=== PATIENT | female | born 1985 | race Caucasian/White ===

== ENCOUNTER 2016-03-20 13:41 | Emergency (ER) | payer OTHER ==
[2016-03-20 16:50] VITALS: BP 114/64
[2016-03-20] MEDS ORDERED: HYDROcodone/ACETAMIN 5-325 MG* 1 TAB PO ONE (17:00)
--- NOTE | 2016-03-20 17:02 | UC ---
Hand/Wrist HPI - HPI Summary HPI Summary: right hand pain after punching a wall today at 2pm because she was angry with her mother in law to be. No prior injury to the same hand. No other injury today. Did not take meds prior to coming for pain. Has seizure disorder, does not drive. Note: nursing note states 3rd and 4th fingers, I note index and middle fingers with swelling at MCP. - History Of Current Complaint Chief Complaint: UCUpperExtremity Stated Complaint: RIGHT HAND INJURY Time Seen by Provider: 03/20/16 16:46 Hx Obtained From: Patient Hx Last Menstrual Period: 03/09/16 ?: No Mechanism Of Injury: punched a wall Onset/Duration: Sudden Onset, Lasting Hours, Still Present Severity Initially: Moderate Severity Currently: Severe Pain Intensity: 7 Pain Scale Used: 0-10 Numeric Character Of Pain: Sharp, Throbbing Aggravating Factor(s): Movement Alleviating: Nothing Associated Signs And Symptoms: Positive: Redness, Bruising - Allergies/Home Medications Allergies/Adverse Reactions: Allergies Allergy/AdvReac Type Severity Reaction Status Date / Time Ibuprofen AdvReac ulcer Verified 03/20/16 16:50 PMH/Surg Hx/FS Hx/Imm Hx Previously Healthy: No Endocrine History Of: Denies: Diabetes Cardiovascular History Of: Denies: Hypertension, Pacemaker/ICD Respiratory History Of: Reports: Asthma - USES INHALER GI/ History Of: Reports: Ulcer Denies: Renal Disease Neurological History Of: Reports: Seizures - LAST ONE OCT 2014(STATES STRESS INDUCED), Migraine - HX OF TWICE A WEEK, NONE SINCE CHANGE OF MEDICATIONS Psychological History Of: Reports: Anxiety - CONTROL WITH MEDS/ SEVERE PANIC ATTACKS, Depression - CONTROL WITH MEDS - Surgical History Surgical History: Yes Surgery Procedure, Year, and Place: TONSILECTOMY A CHILD,. 2006 ULCER REPAIR WITH CAUTERIZATION, [place], [place]. 2007 RIGHT HIP CYST REMOVAL, [place], [place]. 2014 RIGHT FOOT BUNION REMOVED, [facility] - Family History Known Family History: Positive: Hypertension, Other - father from lung cancer - Social History Lives: With Family Alcohol Use: None Substance Use Type: Marijuana Substance Use Comment - Amount & Last Used: states haven't used in 1 month Smoking Status (MU): Heavy Every Day Tobacco Smoker Type: Cigarettes Amount Used/How Often: 1 pack daily Length of Time of Smoking/Using Tobacco: started at age 16 Have You Smoked in the Last Year: Yes When Did the Patient Quit Smoking/Using Tobacco: TAKING CHANTIX Household Exposure Type: Cigarettes - Immunization History Most Recent Influenza Vaccination: 2014 Review of Systems Constitutional: Negative Skin: Negative Eyes: Negative ENT: Negative Respiratory: Negative Cardiovascular: Negative Gastrointestinal: Negative Genitourinary: Negative Motor: Negative Neurovascular: Negative Musculoskeletal: Arthralgia Neurological: Negative Psychological: Negative All Other Systems Reviewed And Are Negative: Yes Physical Exam Triage Information Reviewed: Yes Appearance: Well-Appearing, Well-Nourished, Pain Distress Vital Signs: Initial Vital Signs Temp 98.9 F 03/20/16 16:42 Pulse 120 03/20/16 16:42 Resp 16 03/20/16 16:42 BP 114/64 03/20/16 16:42 Pulse Ox 100 03/20/16 16:42 TACHYCARDIA NOTED Vital Signs Reviewed: Yes Eyes: Positive: Conjunctiva Clear ENT: Positive: Normal ENT inspection Neck: Positive: Supple, Nontender Respiratory: Positive: Lungs clear, Normal breath sounds, No respiratory distress Cardiovascular: Positive: No Murmur, Pulses Normal, Brisk Capillary Refill, Tachycardia Musculoskeletal: Positive: Strength Intact, ROM Limited @ - RIGHT HAND DUE TO PAIN, SWELLING AND REDNESS AND BRUISING AT INDEX AND MIDDLE MCP JOINTS; IS ABLE TO FULLY FLEX AND EXTEND Neurological: Positive: Alert, Muscle Tone Normal Psychological Exam: Normal Skin: Positive: Other - BRUISING AND REDNESS RIGHT HAND, ABOVE Re-Evaluation - Re-Evaluation First Eval Re-Evaluation Time: 18:10 Change: Improved - pain is decreased after norco. Boyfriend is with pt. Pulse with my auscultation is 102. pt states her pulse is fast because she is in pain and is still upset Hand/Wrist Course/Dx - Course Course Of Treatment: RIGHT HAND NEG - Differential Dx/Diagnosis Differential Diagnosis/HQI/PQRI: Contusion, Fracture, Sprain, Strain Provider Diagnoses: CONTUSION RIGHT HAND. TACHYCARDIA Discharge - Discharge Plan Condition: Stable Disposition: HOME Prescriptions: HYDROcodone/ACETAMIN 5-325 MG* [Andrews 5-325 TAB*] 1 tab PO Q4H PRN #12 tab MDD 4 PRN Reason: Pain Patient Education Materials: Contusion in Adults (ED), RICE Therapy (ED) Referrals: Noe Mirza MD [Medical Doctor] - If Needed (IF PAIN PERSISTS )
--- NOTE | 2016-03-20 17:41 | RAD ---
HISTORY: Trauma to right hand COMPARISONS: None VIEWS: 2, Frontal and lateral views of the right hand FINDINGS: BONE DENSITY: Normal. BONES: There is no displaced fracture. JOINTS: There is no arthropathy. ALIGNMENT: There is no dislocation. SOFT TISSUES: Unremarkable. OTHER FINDINGS: None. IMPRESSION: NO ACUTE OSSEOUS INJURY. IF SYMPTOMS PERSIST, RECOMMEND REPEAT IMAGING.
== END 2016-03-20 18:19 | disposition home or self-care (01) ==
LOC: UCCORT 13:41
DX: S60.221A Contusion of right hand, initial encounter (principal); R00.0 Tachycardia, unspecified; J45.909 Unspecified asthma, uncomplicated; F32.9 Major depressive disorder, single episode, unspecified; F41.9 Anxiety disorder, unspecified; F12.90 Cannabis use, unspecified, uncomplicated; F17.210 Nicotine dependence, cigarettes, uncomplicated; W22.09XA Striking against other stationary object, initial encounter; Y92.9 Unspecified place or not applicable; Z88.6 Allergy status to analgesic agent
CPT/HCPCS: 99213; G0463

== ENCOUNTER 2016-03-26 15:55 | Emergency (ER) | payer OTHER ==
[2016-03-26 16:12] VITALS: BP 109/78
[2016-03-26] MEDS ORDERED: Ketorolac INJ* 60 MG/2 ML VIAL IM ONE (17:44)
[2016-03-26] MEDS ORDERED: Ondansetron ODT TAB* 4 MG PO ONE (17:44)
--- NOTE | 2016-03-26 17:44 | UC ---
Head Injury HPI - HPI Summary HPI Summary: Fall on ice on unshovelled walk in front of a client's house this morning. No loss of consciousness, fell onto the right hip and right side of her head. Worked through the day, but presents here with increasing headache and light sensitivity, unresponsive to caffeine. She has a history of migraine, is on topamax. Has used zofran in the past with effectiveness, and has also used toradol in the past. Ibuprofen does not cause an allergic response; rather it was related to previous development of ulcer. She has used toradol in the past without side effects. - History Of Current Complaint Chief Complaint: UCGeneralIllness Stated Complaint: S/P FALL RIGHT HIP/HEAD INJURY WC Time Seen by Provider: 03/26/16 17:28 Hx Obtained From: Patient Hx Last Menstrual Period: 03/16/16 Onset/Duration: Sudden Onset, Lasting Hours - about 8 since injury, 4 hours of headache. Severity Currently: Moderate Pain Intensity: 10 - quite talkative and moves easily Pain Scale Used: 0-10 Numeric Character: Throbbing Aggravating Factor(s): Other - movement and light Associated Signs And Symptoms: Positive: Nausea - Risk Factors SDH Risk Factor: Recent Trauma - Allergies/Home Medications Allergies/Adverse Reactions: Allergies Allergy/AdvReac Type Severity Reaction Status Date / Time Ibuprofen AdvReac ulcer Verified 03/26/16 16:12 PMH/Surg Hx/FS Hx/Imm Hx Endocrine History Of: Denies: Diabetes Cardiovascular History Of: Denies: Hypertension, Pacemaker/ICD Respiratory History Of: Reports: Asthma - USES INHALER GI/ History Of: Reports: Ulcer Denies: Renal Disease Neurological History Of: Reports: Seizures - LAST ONE OCT 2014(STATES STRESS INDUCED), Migraine - HX OF TWICE A WEEK, NONE SINCE CHANGE OF MEDICATIONS Psychological History Of: Reports: Anxiety - CONTROL WITH MEDS/ SEVERE PANIC ATTACKS, Depression - CONTROL WITH MEDS - Surgical History Surgical History: Yes Surgery Procedure, Year, and Place: TONSILECTOMY A CHILD,. 2006 ULCER REPAIR WITH CAUTERIZATION, [place], [place]. 2007 RIGHT HIP CYST REMOVAL, [place], [place]. 2014 RIGHT FOOT BUNION REMOVED, [facility] - Family History Known Family History: Positive: Hypertension, Other - father from lung cancer - Social History Lives: With Family Alcohol Use: None Substance Use Type: Marijuana Substance Use Comment - Amount & Last Used: states haven't used in 1 month Smoking Status (MU): Heavy Every Day Tobacco Smoker Type: Cigarettes Amount Used/How Often: 1 pack daily Length of Time of Smoking/Using Tobacco: started at age 16 Have You Smoked in the Last Year: Yes When Did the Patient Quit Smoking/Using Tobacco: TAKING CHANTIX Household Exposure Type: Cigarettes - Immunization History Most Recent Influenza Vaccination: 2014 Review of Systems Constitutional: Negative Skin: Negative Eyes: Photophobia ENT: Negative Respiratory: Negative Cardiovascular: Negative Gastrointestinal: Negative Genitourinary: Negative Motor: Negative Neurovascular: Negative Musculoskeletal: Arthralgia - right hip pain Neurological: Headache Psychological: Negative All Other Systems Reviewed And Are Negative: Yes Physical Exam Triage Information Reviewed: Yes Appearance: Well-Appearing, Pain Distress - mild as assessed by rapid gait, ease of movement Vital Signs: Initial Vital Signs Temp 98.3 F 03/26/16 16:07 Pulse 89 03/26/16 16:07 Resp 16 03/26/16 16:07 BP 109/78 03/26/16 16:07 Pulse Ox 100 03/26/16 16:07 Vital Signs Reviewed: Yes Eyes: Positive: Conjunctiva Clear ENT Exam: Other - no palpable hematoma ENT: Positive: Pharynx normal, TMs normal Dental Exam: Normal Neck: Positive: Supple, Nontender Respiratory: Positive: Chest non-tender, Lungs clear, Normal breath sounds Cardiovascular: Positive: RRR, No Murmur Abdomen Description: Positive: Nontender Musculoskeletal: Positive: ROM Intact - normal hip rom without pain. Neurological: Positive: Alert, Muscle Tone Normal, Other: - CNII-XII normal. No pronator drift. Normal finger to nose testing. Gait normal, negative Romberg, tandem gait intact Skin Exam: Normal Head Injury Course/Dx - Course Course Of Treatment: given toradol and zofran in the department. - Differential Dx/Diagnosis Provider Diagnoses: migraine. head injury. right hip contusion Discharge - Discharge Plan Condition: Stable Disposition: HOME Prescriptions: Ondansetron TAB* [Zofran Tab*] 4 mg PO Q6H PRN #10 tab PRN Reason: Nausea/Vomiting Patient Education Materials: Head Injury (ED) Additional Instructions: You do not appear to have a significant concussion, but you should ensure that you rest tonight, avoid screens and stiimulation. You can repeat the dose of zofran in 4 hours, and use acetaminophen 650mg every 4 hours as needed for pain related to the fall, or headache. As discussed, you will return to work tomorrow without restriction.
== END 2016-03-26 18:16 | disposition home or self-care (01) ==
LOC: UCCORT 15:55
DX: S09.90XA Unspecified injury of head, initial encounter (principal); S70.01XA Contusion of right hip, initial encounter; W00.0XXA Fall on same level due to ice and snow, initial encounter; Y93.89 Activity, other specified; Y92.008 Other place in unspecified non-institutional (private) residence as the place of occurrence of the external cause; Y99.0 Civilian activity done for income or pay; G43.909 Migraine, unspecified, not intractable, without status migrainosus; Z88.6 Allergy status to analgesic agent; F17.210 Nicotine dependence, cigarettes, uncomplicated
CPT/HCPCS: 96372; 99212; A9270-GY; G0463; J1885

== ENCOUNTER 2016-05-04 18:09 | Emergency (ER) | payer OTHER ==
[2016-05-04 20:41] VITALS: BP 108/84
[2016-05-04] MEDS ORDERED: Acetaminophen TAB* 325 MG PO ONE (21:12)
--- NOTE | 2016-05-04 21:20 | UC ---
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 - History of Current Complaint Chief Complaint: UCGeneralIllness Stated Complaint: FEVER, SORE THROAT Time Seen by Provider: 05/04/16 21:03 Hx Obtained From: Patient Hx Last Menstrual Period: FIRST OF THE MONTH ?: No Onset/Duration: Sudden Onset, Lasting Days - 4, Still Present Severity: Moderate Pain Intensity: 7 Pain Scale Used: 0-10 Numeric Cough: None Associated Signs & Symptoms: Positive: Fever, Other - nausea Related History: Smoking, T & A - Allergies/Home Medications Allergies/Adverse Reactions: Allergies Allergy/AdvReac Type Severity Reaction Status Date / Time Ibuprofen AdvReac ulcer Verified 05/04/16 20:41 Home Medications: Home Medications Calcium Carbonate-Cholecalcife [Calcium 500+D 500-200 mg-Unit] 1 tab PO DAILY [History Confirmed 05/04/16] PMH/Surg Hx/FS Hx/Imm Hx Previously Healthy: No Endocrine History Of: Denies: Diabetes Cardiovascular History Of: Denies: Hypertension, Pacemaker/ICD Respiratory History Of: Reports: Asthma - USES INHALER GI/ History Of: Reports: Ulcer Denies: Renal Disease Neurological History Of: Reports: Seizures - LAST ONE OCT 2014(STATES STRESS INDUCED), Migraine - HX OF TWICE A WEEK, NONE SINCE CHANGE OF MEDICATIONS Psychological History Of: Reports: Anxiety - CONTROL WITH MEDS/ SEVERE PANIC ATTACKS, Depression - CONTROL WITH MEDS - Surgical History Surgical History: Yes Surgery Procedure, Year, and Place: TONSILECTOMY A CHILD,. 2006 ULCER REPAIR WITH CAUTERIZATION, [place], [place]. 2007 RIGHT HIP CYST REMOVAL, [place], [place]. 2014 [facility] - Family History Known Family History: Positive: Hypertension, Other - father from lung cancer - Social History Occupation: Employed Full-time Lives: With Family Alcohol Use: None Substance Use Type: Marijuana Substance Use Comment - Amount & Last Used: states haven't used in 1 month Smoking Status (MU): Heavy Every Day Tobacco Smoker Type: Cigarettes Amount Used/How Often: 1 pack daily Length of Time of Smoking/Using Tobacco: started at age 16 Have You Smoked in the Last Year: Yes Household Exposure Type: Cigarettes Cessation Counseling: Counseled 3+Min - 10 Min - Immunization History Most Recent Influenza Vaccination: 2017 Review of Systems Constitutional: Fever Skin: Negative Eyes: Negative ENT: Negative Respiratory: Negative Cardiovascular: Negative Gastrointestinal: Negative Genitourinary: Negative Motor: Negative Neurovascular: Negative Musculoskeletal: Negative Neurological: Negative Psychological: Negative All Other Systems Reviewed And Are Negative: Yes Physical Exam Triage Information Reviewed: Yes Appearance: Well-Appearing, No Pain Distress, Well-Nourished Vital Signs: Initial Vital Signs Temp 98.8 F 05/04/16 20:34 Pulse 93 05/04/16 20:34 Resp 18 05/04/16 20:34 BP 108/84 05/04/16 20:34 Pulse Ox 99 05/04/16 20:34 Vital Signs Reviewed: Yes Eye Exam: Normal Eyes: Positive: Conjunctiva Clear ENT Exam: Normal ENT: Positive: Normal ENT inspection, Hearing grossly normal, Pharyngeal erythema, TMs normal. Negative: Nasal congestion, Nasal drainage, Trismus, Muffled/hoarse voice Dental Exam: Other - no teeth Neck exam: Normal Neck: Positive: Supple, Nontender, No Lymphadenopathy Respiratory Exam: Normal Respiratory: Positive: Chest non-tender, Lungs clear, Normal breath sounds, No respiratory distress, No accessory muscle use Cardiovascular Exam: Normal Cardiovascular: Positive: RRR, No Murmur, Pulses Normal, Brisk Capillary Refill Musculoskeletal Exam: Normal Musculoskeletal: Positive: Strength Intact, ROM Intact, No Edema Neurological Exam: Normal Neurological: Positive: Alert, Muscle Tone Normal Psychological Exam: Normal Skin Exam: Normal Diagnostics - Laboratory Diagnostic Studies Completed/Ordered: RST (-) Throat Pain/Nasal Course/Dx - Course Course Of Treatment: rest tylenol, ibuprofen, increase fluids, follow with pcp, nicotine cesation information - Differential Dx/Diagnosis Differential Diagnosis/HQI/PQRI: Laryngitis, Pharyngitis, Sinusitis, URI Provider Diagnoses: URI Viral illness, nicotine dependant Discharge - Discharge Plan Condition: Stable Disposition: HOME Patient Education Materials: Fever in Adults (ED), Viral Syndrome (ED), Cigarette Smoking and Your Health (GEN), How to Stop Smoking (ED) Referrals: Tammy Roblero MD [Primary Care Provider] - 3 Days
== END 2016-05-04 22:01 | disposition home or self-care (01) ==
LOC: UCCORT 18:09
DX: J06.9 Acute upper respiratory infection, unspecified (principal); B34.9 Viral infection, unspecified; F41.0 Panic disorder [episodic paroxysmal anxiety]; Z88.6 Allergy status to analgesic agent; F17.210 Nicotine dependence, cigarettes, uncomplicated; Z71.6 Tobacco abuse counseling
CPT/HCPCS: 87651; 99212; A9270-GY; G0463

== ENCOUNTER 2016-10-18 14:36 | Emergency (ER) | payer SELFPAY ==
[2016-10-18 15:56] VITALS: BP 106/75
--- NOTE | 2016-10-18 16:15 | UC ---
Complaint Female HPI - HPI Summary HPI Summary: Pt presents with c/o urinary symptoms of frequency, urgency and dysuria X 1 -2 days. - History Of Current Complaint Chief Complaint: UCGU Stated Complaint: URINARY COMPLAINT Time Seen by Provider: 10/18/16 15:53 Hx Obtained From: Patient Hx Last Menstrual Period: last week ?: No Onset/Duration: Sudden Onset, Lasting Days Timing: Constant, Lasting Days Severity Initially: Mild Severity Currently: Mild Character: Burning Aggravating Factor(s): Urination Associated Signs And Symptoms: Positive: Negative - Risk Factors Ectopic Risk Factor: Negative Ovarian Torsion Risk Factor: Negative - Allergies/Home Medications Allergies/Adverse Reactions: Allergies Allergy/AdvReac Type Severity Reaction Status Date / Time Ibuprofen AdvReac ulcer Verified 10/18/16 15:49 PMH/Surg Hx/FS Hx/Imm Hx Previously Healthy: Yes - Surgical History Surgical History: Yes Surgery Procedure, Year, and Place: TONSILECTOMY A CHILD,. 2005 ULCER REPAIR WITH CAUTERIZATION, [place], [place]. 2006 RIGHT HIP CYST REMOVAL, [place], [place]. 2013 RIGHT FOOT BUNION REMOVED, [facility] - Family History Known Family History: Positive: Hypertension, Other - father from lung cancer - Social History Occupation: Employed Full-time Lives: With Family Alcohol Use: None Substance Use Type: Marijuana Substance Use Comment - Amount & Last Used: last used this morning Smoking Status (MU): Heavy Every Day Tobacco Smoker Type: Cigarettes Amount Used/How Often: 1 pack daily Length of Time of Smoking/Using Tobacco: started at age 16 Have You Smoked in the Last Year: Yes When Did the Patient Quit Smoking/Using Tobacco: TAKING CHANTIX Household Exposure Type: Cigarettes - Immunization History Most Recent Influenza Vaccination: 2014 Review of Systems Constitutional: Fatigue, Other - malaise Skin: Negative Eyes: Negative ENT: Negative Respiratory: Negative Cardiovascular: Negative Gastrointestinal: Negative Genitourinary: Dysuria, Frequency, Urgency Motor: Negative Neurovascular: Negative Musculoskeletal: Negative Neurological: Negative Psychological: Negative Is Patient Immunocompromised?: No All Other Systems Reviewed And Are Negative: Yes Physical Exam Triage Information Reviewed: Yes Appearance: Well-Appearing Vital Signs: Initial Vital Signs Temp 98.6 F 10/18/16 15:50 Pulse 111 10/18/16 15:50 Resp 16 10/18/16 15:50 BP 106/75 10/18/16 15:50 Pulse Ox 96 10/18/16 15:50 Vital Signs Reviewed: Yes Eye Exam: Normal ENT Exam: Normal Neck exam: Normal Respiratory Exam: Normal Cardiovascular Exam: Normal Abdomen Description: Positive: Other: - suprapubic discomfort Musculoskeletal Exam: Normal Neurological Exam: Normal Psychological Exam: Normal Skin Exam: Normal Complaint Female Dx - Differential Dx/Diagnosis Differential Diagnosis/HQI/PQRI: Urinary Tract Infection Provider Diagnoses: UTI Discharge - Discharge Plan Condition: Stable Disposition: HOME Prescriptions: Phenazopyridine TAB* [Pyridium 100 mg TAB*] 100 mg PO Q8H #6 tab Sulfamethox/Trimethoprim DS* [Bactrim DS 800/160 TAB*] 1 tab PO Q12H #10 tab Patient Education Materials: Urinary Tract Infection in Women (ED), Hematuria ( ED) Referrals: Tammy Roblero MD [Primary Care Provider] - If Needed Additional Instructions: Please follow up with your PCP or return to clinic as needed.
[2016-10-18] MEDS ORDERED: Phenazopyridine TAB* 100 MG PO ONE (16:17)
== END 2016-10-18 16:23 | disposition home or self-care (01) ==
LOC: UCCORT 14:36
DX: N39.0 Urinary tract infection, site not specified (principal); B96.20 Unspecified Escherichia coli [E. coli] as the cause of diseases classified elsewhere; Z88.6 Allergy status to analgesic agent; F12.90 Cannabis use, unspecified, uncomplicated; F17.210 Nicotine dependence, cigarettes, uncomplicated
CPT/HCPCS: 81003; 87077; 87086; 87186; 99212; A9270-GY; G0463

== ENCOUNTER 2017-06-19 16:54 | Emergency (ER) | payer MEDICAID ==
[2017-06-19 17:42] VITALS: BP 113/73
--- NOTE | 2017-06-19 18:08 | UC ---
Respiratory Complaint HPI - HPI Summary HPI Summary: c/o 8 days of cough, and what started as a cold, which progressively got worse with fever, malaise, production of phlegm and sore throat. LMD 5 days ago. Denies nausea, vomiting or diarrhea. - History of Current Complaint Chief Complaint: UCRespiratory Stated Complaint: COUGH, ACHES, FEVER Time Seen by Provider: 06/19/17 17:24 Hx Obtained From: Patient Hx Last Menstrual Period: 06/14/17 ?: No Onset/Duration: Gradual Onset, Lasting Weeks Timing: Constant Severity Initially: Mild Severity Currently: Severe Pain Intensity: 9 Character: Cough: Productive Alleviating Factors: Nothing Associated Signs And Symptoms: Positive: Fever, Chills, Nasal Congestion, Sinus Discomfort - Risk Factors Pulmonary Embolism Risk Factors: Negative Cardiac Risk Factors: Negative Pseudomonas Risk Factors: Negative Tuberculosis Risk Factors: Negative - Allergies/Home Medications Allergies/Adverse Reactions: Allergies Allergy/AdvReac Type Severity Reaction Status Date / Time NSAIDS (Non-Steroidal AdvReac See Comment Verified 06/19/17 17:43 Anti-Inflamma Home Medications: Home Medications C/Ech/Stjwort/Eldr/Sging/Hrb30 [Cold Defense Fighter] 2 cap PO ONCE PRN [History Confirmed 06/19/17] LORazepam [Ativan 1 MG TAB] 1 mg PO BID PRN 06/19/17 [History Confirmed 06/19/17 ] Mirtazapine TAB* [Remeron TAB*] 15 mg PO BEDTIME 06/19/17 [History Confirmed 01/25] PMH/Surg Hx/FS Hx/Imm Hx Previously Healthy: Yes GI/ History: Gastroesophageal Reflux Neurological History: Seizures Psychological History: Anxiety - Surgical History Surgical History: Yes Surgery Procedure, Year, and Place: TONSILECTOMY A CHILD,. 2006 ULCER REPAIR WITH CAUTERIZATION, [place], [place]. 2007 RIGHT HIP CYST REMOVAL, [place], [place]. 2014 RIGHT FOOT BUNION REMOVED, [facility] - Family History Known Family History: Positive: Hypertension, Other - father from lung cancer Negative: Seizure Disorder - Social History Alcohol Use: None Substance Use Type: Marijuana Substance Use Comment - Amount & Last Used: last used this morning - daily Smoking Status (MU): Heavy Every Day Tobacco Smoker Type: Cigarettes Amount Used/How Often: 1 pack daily Length of Time of Smoking/Using Tobacco: started at age 16 Have You Smoked in the Last Year: Yes When Did the Patient Quit Smoking/Using Tobacco: requesting nicotine inhaler Household Exposure Type: Cigarettes - Immunization History Most Recent Influenza Vaccination: 2014 Most Recent Pneumonia Vaccination: none Review of Systems Constitutional: Fever, Chills, Fatigue ENT: Sore Throat Respiratory: Cough All Other Systems Reviewed And Are Negative: Yes Physical Exam Triage Information Reviewed: Yes Appearance: No Pain Distress, Ill-Appearing, Obese Vital Signs: Initial Vital Signs Temp 99.9 F 06/19/17 17:33 Pulse 120 06/19/17 17:33 Resp 18 06/19/17 17:33 BP 113/73 06/19/17 17:33 Pulse Ox 100 06/19/17 17:33 Vital Signs Reviewed: Yes Eyes: Positive: Conjunctiva Clear ENT: Positive: Hearing grossly normal, Pharyngeal erythema, TMs normal, Uvula midline Neck: Positive: Supple, Nontender, No Lymphadenopathy Respiratory: Positive: Chest non-tender, Lungs clear, Normal breath sounds Cardiovascular: Positive: RRR, No Murmur, Pulses Normal, Brisk Capillary Refill Abdomen Description: Positive: Nontender, No Organomegaly UC Diagnostic Evaluation - Laboratory O2 Sat by Pulse Oximetry: 100 Respiratory Course/Dx - Course Course Of Treatment: Chest xray NAD. Strep test positive. Continue oral hydration, start amoxil as prescribed - Differential Dx/Diagnosis Provider Diagnoses: Streptococcal pharyngitis Discharge - Sign-Out/Discharge Documenting (check all that apply): Discharge/Admit/Transfer - Discharge Plan Condition: Stable Disposition: HOME Referrals: Tammy Roblero MD [Primary Care Provider] - - Billing Disposition and Condition Condition: STABLE Disposition: HOME
--- NOTE | 2017-06-19 18:53 | RAD ---
Indication: Productive cough. 2 views of the chest demonstrate no mediastinal shift. Heart is of normal size and configuration. Lung pisano appear clear. When compared to previous exam of July 12, 2015 no significant change is noted. IMPRESSION: No active cardiopulmonary disease is noted.
[2017-06-19] MEDS ORDERED: Amoxicillin PO (*) 500 MG CAP PO ONE (19:05)
[2017-06-19] MEDS ORDERED: guaiFENesin/CODIEN 100MG-10MG* 5 ML UDC PO ONE (19:05)
== END 2017-06-19 19:21 | disposition home or self-care (01) ==
LOC: UCCORT 16:54
DX: J02.0 Streptococcal pharyngitis (principal); Z88.6 Allergy status to analgesic agent; F41.9 Anxiety disorder, unspecified; F17.210 Nicotine dependence, cigarettes, uncomplicated
CPT/HCPCS: 71046; 87651; 99212; A9270-GY; G0463

== ENCOUNTER 2017-08-12 12:08 | Emergency (ER) | payer OTHER ==
[2017-08-12 12:48] VITALS: BP 104/67
[2017-08-12] MEDS ORDERED: predniSONE TAB* 20 MG PO ONE (13:22)
[2017-08-12] MEDS ORDERED: Albuterol HFA INHALER* 8 gm MDI INH ONE (13:22)
--- NOTE | 2017-08-12 13:22 | UC ---
Respiratory Complaint HPI - HPI Summary HPI Summary: This is a 31-year-old female with a 10 day history of nasal congestion postnasal drip sore throat and cough. She has not had a fever. She reports that for the past 3 days her cough has been worsening. She has been experiencing chest tightness and wheezing in that timeframe. She has a history of asthma but is currently on no medications for it. He denies any chest pain or shortness of breath. - History of Current Complaint Chief Complaint: UCRespiratory Stated Complaint: COUGH,CONGESTION Time Seen by Provider: 08/12/17 13:16 Hx Obtained From: Patient Hx Last Menstrual Period: ~07/30/17 Onset/Duration: Gradual Onset, Lasting Days Timing: Constant Severity Initially: Mild Severity Currently: Moderate Pain Intensity: 4 Pain Scale Used: 0-10 Numeric Character: Cough: Productive Aggravating Factors: Nothing Alleviating Factors: Nothing Associated Signs And Symptoms: Positive: Wheezing, Nasal Congestion, Sinus Discomfort - Allergies/Home Medications Allergies/Adverse Reactions: Allergies Allergy/AdvReac Type Severity Reaction Status Date / Time NSAIDS (Non-Steroidal AdvReac See Comment Verified 08/12/17 12:41 Anti-Inflamma Home Medications: Home Medications Guaifen/Phenyleph/Acetaminophn [Tylenol Sinus Severe Caplet] 1 - 2 tab PO Q6H PRN 08/12/17 [History Confirmed 08/12/17] Phenylephrine/Dm/Acetaminop/GG [Vicks Dayquil Severe Cold] 1 - 2 tab PO Q6H PRN 08/12/17 [History Confirmed 08/12/17] PMH/Surg Hx/FS Hx/Imm Hx Previously Healthy: Yes Respiratory History: Asthma, Bronchitis Other Neurological History: pseudoseizures Psychological History: Bipolar Disorder - Surgical History Surgical History: Yes Surgery Procedure, Year, and Place: TONSILECTOMY A CHILD,. 2006 ULCER REPAIR WITH CAUTERIZATION, [place], [place]. 2006 RIGHT HIP CYST REMOVAL, [place], [place]. 2014 RIGHT FOOT BUNION REMOVED, [facility] - Family History Known Family History: Positive: Hypertension, Respiratory Disease - asthma, Other - father from lung cancer Negative: Seizure Disorder - Social History Alcohol Use: None Substance Use Type: Marijuana, Prescribed Substance Use Comment - Amount & Last Used: Daily & 08/11/17 Smoking Status (MU): Heavy Every Day Tobacco Smoker Type: Cigarettes Amount Used/How Often: 1 PPD Length of Time of Smoking/Using Tobacco: Since Age 19 Have You Smoked in the Last Year: Yes When Did the Patient Quit Smoking/Using Tobacco: requesting nicotine inhaler Household Exposure Type: Cigarettes - Immunization History Most Recent Influenza Vaccination: 2014 Most Recent Pneumonia Vaccination: none Review of Systems Constitutional: Negative Skin: Negative Eyes: Negative ENT: Nasal Discharge, Sinus Congestion, Sinus Pain/Tenderness Respiratory: Cough Cardiovascular: Negative Gastrointestinal: Negative Genitourinary: Negative Motor: Negative Neurovascular: Negative Musculoskeletal: Negative Neurological: Negative Psychological: Negative Is Patient Immunocompromised?: No All Other Systems Reviewed And Are Negative: Yes Physical Exam Triage Information Reviewed: Yes Appearance: Well-Appearing, No Pain Distress, Well-Nourished Vital Signs: Initial Vital Signs Temp 98.2 F 08/12/17 12:38 Pulse 66 08/12/17 12:38 Resp 16 08/12/17 12:38 BP 104/67 08/12/17 12:38 Pulse Ox 100 08/12/17 12:38 Vital Signs Reviewed: Yes Eyes: Positive: Conjunctiva Clear ENT: Positive: Hearing grossly normal, Nasal congestion, Uvula midline. Negative: Pharyngeal erythema, Nasal drainage, Tonsillar swelling, Tonsillar exudate, Trismus, Muffled voice, Hoarse voice, Dental tenderness, Sinus tenderness Dental Exam: Other - edentulous Neck: Positive: Supple Respiratory: Positive: No respiratory distress, No accessory muscle use, Wheezing - with forced expiration Cardiovascular: Positive: RRR, No Murmur Musculoskeletal: Positive: ROM Intact, No Edema Neurological: Positive: Alert, Muscle Tone Normal Psychological Exam: Normal Skin Exam: Normal UC Diagnostic Evaluation - Laboratory O2 Sat by Pulse Oximetry: 100 - normal/not hypoxic Respiratory Course/Dx - Differential Dx/Diagnosis Provider Diagnoses: acute bronchitis with bronchospasm Discharge - Sign-Out/Discharge Documenting (check all that apply): Discharge/Admit/Transfer - Discharge Plan Condition: Stable Disposition: HOME Prescriptions: Amoxicillin PO (*) [Amoxicillin 875 MG (*)] 875 mg PO BID #14 tab Benzonatate CAP* [Tessalon CAP*] 100 - 200 mg PO TID PRN #28 cap PRN Reason: Cough predniSONE [Deltasone 20 MG TAB] 40 mg PO DAILY #8 tab Patient Education Materials: Acute Bronchitis (ED) Referrals: Tammy Roblero MD [Primary Care Provider] - 4 Days (if not better) Additional Instructions: use inhaler as directed recheck for new or worsening symptoms - Billing Disposition and Condition Condition: STABLE Disposition: Home
== END 2017-08-12 13:35 | disposition home or self-care (01) ==
LOC: UCCORT 12:08
DX: J20.9 Acute bronchitis, unspecified (principal); Z88.6 Allergy status to analgesic agent; F17.210 Nicotine dependence, cigarettes, uncomplicated
CPT/HCPCS: 99213; A9270-GY; G0463; J7512

== ENCOUNTER 2017-12-14 12:55 | Emergency (ER) | payer OTHER ==
[2017-12-14 13:34] VITALS: BP 112/82
--- NOTE | 2017-12-14 13:59 | UC ---
Syncope/New Syncope HPI - HPI Summary HPI Summary: 32 year old female presents with family member for several day history of URI/ sinusitis symptoms. Prior to evaluation patient had a syncopal event that was witnessed by family member who states she was siting in chair, stated she did not feel well, and then fell to floor. Upon entering the room patient was found on floor. No tonic/clonic activity. She did not respond to verbal stimulation initially however had spontaneous recovery after approximately 1 minute without post-ictal activity. No obvious injuries. History of psychogenic seizures and bipolar depression followed by Dr. Peguero. 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 Negative: Chest Pain, Diarrhea, Diaphoresis, Head Trauma (Remote), Head Trauma (Recent), Numbness, Palpitations, Seizure, Vomiting - Allergies/Home Medications Allergies/Adverse Reactions: Allergies Allergy/AdvReac Type Severity Reaction Status Date / Time NSAIDS (Non-Steroidal AdvReac See Comment Verified 12/14/17 13:31 Anti-Inflamma PMH/Surg Hx/FS Hx/Imm Hx GI/ History: Gastroesophageal Reflux Psychological History: Anxiety, Bipolar Disorder Other Psychological History: Psychogenic seizure disorder - Surgical History Surgical History: Yes Surgery Procedure, Year, and Place: TONSILECTOMY A CHILD,. 2006 ULCER REPAIR WITH CAUTERIZATION, [employer], [place]. 2006 RIGHT HIP CYST REMOVAL, [place], [place]. 2014 RIGHT FOOT BUNION REMOVED, [facility] - Family History Known Family History: Positive: Hypertension, Respiratory Disease - asthma, Other - father from lung cancer Negative: Seizure Disorder - Social History Occupation: Disabled Lives: With Family Alcohol Use: None Substance Use Type: Marijuana Substance Use Comment - Amount & Last Used: daily Smoking Status (MU): Heavy Every Day Tobacco Smoker Type: Cigarettes Amount Used/How Often: 1 PPD Length of Time of Smoking/Using Tobacco: Since Age 19 Have You Smoked in the Last Year: Yes When Did the Patient Quit Smoking/Using Tobacco: requesting nicotine inhaler Household Exposure Type: Cigarettes - Immunization History Most Recent Influenza Vaccination: 2014 Most Recent Pneumonia Vaccination: none Review of Systems Constitutional: Fever Skin: Negative Eyes: Negative ENT: Sore Throat, Ear Ache, Nasal Discharge, Sinus Congestion, Sinus Pain/ Tenderness Respiratory: Negative Cardiovascular: Negative Gastrointestinal: Nausea Neurological: Other - dizziness Is Patient Immunocompromised?: No All Other Systems Reviewed And Are Negative: Yes Physical Exam Triage Information Reviewed: Yes Appearance: No Pain Distress, Well-Nourished Vital Signs: Initial Vital Signs Temp 98.6 F 12/14/17 13:30 Pulse 75 12/14/17 13:30 Resp 15 12/14/17 13:30 BP 112/82 12/14/17 13:30 Pulse Ox 99 12/14/17 13:30 Vital Signs Reviewed: Yes Eyes: Positive: Conjunctiva Clear. Negative: Discharge ENT Exam: Other - Normocephalic. Atraumatic. Neck: Positive: Supple, Nontender Respiratory: Positive: Lungs clear, Normal breath sounds, No respiratory distress Cardiovascular: Positive: RRR, No Murmur, Pulses Normal, Brisk Capillary Refill Abdomen Description: Positive: Nontender, No Organomegaly, Soft. Negative: Distended, Guarding Musculoskeletal: Positive: Strength Intact, ROM Intact Neurological: Positive: Alert, Muscle Tone Normal, Other: - Awoken spontaneously following syncopal event. No post-ictal symptoms. Alert and oriented x 3. PERRLA. [place] equal and strong. Able to move from floor to chair with minimal assistance. Skin Exam: Normal Diagnostics - Laboratory Diagnostic Studies Completed/Ordered: FSBG 101 Syncope Course/Dx - Course Course Of Treatment: 32 year old female with 2-3 day history of URI/sinusitis symptoms who had syncopal event after entering exam room that was witnessed only by family member. She initially did not respond to verbal stimulatio however spontaneously recovered after approximately 1 minute without post-ictal symptoms. No tonic-clonic activity was witnessed. Neuro intact. VSS. FSBG 101. Recommend that patient be evaluated in ED. Transferred to [facility] at patient request via EMS. - Differential Dx/Diagnosis Differential Diagnosis/HQI/PQRI: Dysrhythmia, Hypovolemia, Seizure, Vasovagal Episode Provider Diagnoses: syncope Discharge - Sign-Out/Discharge Documenting (check all that apply): Patient Departure All imaging exams completed and their final reports reviewed: No Studies - Discharge Plan Condition: Guarded Disposition: TRANS HIGHER LVL OF CARE FAC Patient Education Materials: Syncope (ED) Referrals: Tammy Roblero MD [Primary Care Provider] - Additional Instructions: With you having a syncopal event in the clinic I recommending that you be evaluated in the emergency room at this time. Patient to be transferred via EMS. - Billing Disposition and Condition Condition: GUARDED Disposition: Trans Higher Lvl of Care Fac
== END 2017-12-14 13:56 | disposition short-term general hospital (02) ==
LOC: UCCORT 12:55
DX: R55 Syncope and collapse (principal); R56.9 Unspecified convulsions; F31.9 Bipolar disorder, unspecified; F12.90 Cannabis use, unspecified, uncomplicated; F17.210 Nicotine dependence, cigarettes, uncomplicated; Z88.6 Allergy status to analgesic agent
CPT/HCPCS: 99213; G0463

== ENCOUNTER 2018-02-20 08:49 | Emergency (ER) | payer OTHER ==
[2018-02-20 09:06] VITALS: BP 113/67
--- NOTE | 2018-02-20 09:14 | UC ---
Throat Pain/Nasal Raj HPI - HPI Summary HPI Summary: 32-year-old woman comes in with a chief complaint of runny nose sore throat cough chest congestion. Upper respiratory tract infection symptoms started about a week and a half ago. Rhinorrhea is turned green. Feels like it has gone into her chest now.. She's had some wheezing. She used her albuterol inhaler and that did help. - History of Current Complaint Chief Complaint: UCRespiratory Stated Complaint: CONGESTION WEAK COUGH ACHY Time Seen by Provider: 02/20/18 08:57 Hx Last Menstrual Period: 3 weeks ago Pain Intensity: 9 - Allergies/Home Medications Allergies/Adverse Reactions: Allergies Allergy/AdvReac Type Severity Reaction Status Date / Time NSAIDS (Non-Steroidal AdvReac See Comment Verified 02/20/18 09:00 Anti-Inflamma Home Medications: Home Medications Acetaminophen [Acetaminophen Extra Strength] 1,000 mg PO Q6H PRN 02/20/18 [ History Confirmed 02/20/18] PMH/Surg Hx/FS Hx/Imm Hx Previously Healthy: Yes - PSYCHGENIC NONEPILEPTIC SEIZURES Respiratory History: Asthma - Surgical History Surgical History: Yes Surgery Procedure, Year, and Place: TONSILECTOMY A CHILD,. 2006 ULCER REPAIR WITH CAUTERIZATION, [place], [place]. 2006 RIGHT HIP CYST REMOVAL, [place], [place]. 2013 RIGHT FOOT BUNION REMOVED, [facility] - Family History Known Family History: Positive: Hypertension, Respiratory Disease - asthma, Other - father from lung cancer Negative: Seizure Disorder - Social History Alcohol Use: None Substance Use Type: Marijuana Substance Use Comment - Amount & Last Used: daily Smoking Status (MU): Heavy Every Day Tobacco Smoker Type: Cigarettes Amount Used/How Often: 1 PPD Length of Time of Smoking/Using Tobacco: Since Age 19 Have You Smoked in the Last Year: Yes When Did the Patient Quit Smoking/Using Tobacco: requesting nicotine inhaler Household Exposure Type: Cigarettes - Immunization History Most Recent Influenza Vaccination: 2015 Most Recent Pneumonia Vaccination: none Review of Systems All Other Systems Reviewed And Are Negative: Yes Constitutional: Positive: Negative Skin: Positive: Negative Eyes: Positive: Negative ENT: Positive: Sore Throat, Nasal Discharge, Sinus Congestion, Sinus Pain/ Tenderness Respiratory: Positive: Shortness Of Breath, Cough, Other - WHEEZING Cardiovascular: Positive: Negative Gastrointestinal: Positive: Negative Motor: Positive: Negative Neurovascular: Positive: Negative Musculoskeletal: Positive: Negative Neurological: Positive: Negative Psychological: Positive: Negative Is Patient Immunocompromised?: No Physical Exam Triage Information Reviewed: Yes Appearance: No Pain Distress, Well-Nourished, Ill-Appearing - MILD Vital Signs: Initial Vital Signs Temp 98.8 F 02/20/18 09:02 Pulse 79 02/20/18 09:02 Resp 18 02/20/18 09:02 BP 113/67 02/20/18 09:02 Pulse Ox 100 02/20/18 09:02 Vital Signs Reviewed: Yes Eye Exam: Normal Eyes: Positive: Conjunctiva Clear ENT: Positive: Pharyngeal erythema, Nasal congestion, Nasal drainage, TMs normal Neck exam: Normal Neck: Positive: Supple Respiratory: Positive: Lungs clear, Normal breath sounds, No respiratory distress Cardiovascular: Positive: RRR Musculoskeletal Exam: Normal Musculoskeletal: Positive: Strength Intact, ROM Intact Neurological Exam: Normal Neurological: Positive: Alert, Muscle Tone Normal Psychological Exam: Normal Psychological: Positive: Age Appropriate Behavior Skin Exam: Normal Throat Pain/Nasal Course/Dx - Differential Dx/Diagnosis Provider Diagnosis: Bronchitis Discharge - Sign-Out/Discharge Documenting (check all that apply): Patient Departure All imaging exams completed and their final reports reviewed: No Studies - Discharge Plan Condition: Stable Disposition: HOME Prescriptions: Amoxicillin/Clavulanate TAB* [Augmentin TAB 875*] 875 mg PO BID #20 tab Patient Education Materials: Acute Bronchitis (ED) Referrals: [facility] [Outside] Additional Instructions: FOLLOW UP WITH YOUR DOCTOR IF NOT COMPLETELY IMPROVED. GET RECHECKED FOR ANY WORSENING OF YOUR CONDITION OR QUESTIONS OR CONCERNS. - Billing Disposition and Condition Condition: STABLE Disposition: Home
== END 2018-02-20 09:18 | disposition home or self-care (01) ==
LOC: UCCORT 08:49
DX: J40 Bronchitis, not specified as acute or chronic (principal); Z88.6 Allergy status to analgesic agent; F17.210 Nicotine dependence, cigarettes, uncomplicated
CPT/HCPCS: 99212; G0463

== ENCOUNTER 2018-04-23 10:06 | Emergency (ER) | payer OTHER ==
--- OUTSIDE RECORDS SUMMARY | 2018-04-23 11:05 | XMS REPORT | Continuity of Care Document ---
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 Sensitivities [phone] Laboratory test 07/05/2013 N2N/CCD Import Throat Strep See Note 21 finding Screen Laboratory test 04/24/2013 N2N/CCD Import Cytology Pap See Note 22 finding CBC 03/20/2013 N2N/CCD Import Hematocrit 47.7 % High 36.0 -46. 1 Hemoglobin 16.3 gm/dL High 11.6-15.8 Mean Cell Volume 92.4 fl 80.9-99.0 Mean Corpuscular HGB 31.6 pg 25.9-32.7 Mean Corpuscular HGB Conc 34.2 g/dL 30.8-34.3 Mean Platelet Volume 10.5 fL 8.9-12.4 Platelet Count 327 K/uL 155-360 Red Blood Count 5.16 M/uL 3.90-5.40 Red Cell Distri Width %CV 13.3 % 11.7-14.4 White Blood Count 7.3 K/uL 3.1-10.7 Comprehensive Metabolic Panel 03/20/2013 N2N/CCD Import Alb/Glob 1.4 ratio Albumin 4.5 g/dL 3.5-5.0 Alkaline Phosphatase 63 U/L 50-136 Anion Gap 10 mEq/L 8-16 BUN 9 mg/dL 5-23 BUN/Creat 12.8 ratio Bilirubin,Total 0.5 mg/dL 0.2-1.2 Calcium 9.3 mg/dL 8.5-10.1 Carbon Dioxide 29 mEq/L 18-29 Chloride 104 mmol/L 98-107 Creatinine 0.7 mg/dL 0.5-1.4 Globulin 3.3 g/dL 1.9-4.3 Glom Filtration Rate, Estimate >60 mL/min >60 Glucose 68 mg/dL Low 76-115 If >60 mL/min >60 23 Potassium 4.7 mmol/L 3.5-5.1 SGPT/Alt 26 U/L Low 30-65 Sgot/Ast 15 U/L Low 16-40 Sodium 138 mmol/L 136-145 Total Protein 7.8 g/dL 6.3-8.0 H Pylori,Igm,Igg,Iga 03/20/2013 N2N/CCD Import Helicobacter 2.0 units 0.0-8.9 24 Antibodys Pylori, Iga Abs Helicobacter Pylori, Igg <0.9 U/mL 0.0-0.8 25 Helicobacter Pylori, Igm Abs 4.2 units 0.0-8.9 26 Dna Probe N. Gono + 02/05/2011 N2N/CCD Import Dna Probe For See Note 27 C. Trach. Chlamydia Trac. Dna Probe For N. Gonorrhoeae See Note 28 Laboratory test 02/05/2011 N2N/CCD Import Vaginal Strep See Note 29 finding Screen Urinalysis With 01/20/2011 N2N/CCD Import Urine Bacteria Few None Seen Microscopic Urine Bilirubin - Dipstick Negative Negative Urine Blood Negative Negative Urine Clarity Clear Clear Urine Color Yellow Yellow Urine Epithelial Cells Moderate None Seen 30 Urine Glucose - Dipstick Negative mg/dL Negative Urine Ketone Negative mg/dL Negative Urine Leuk Esterase Large High Negative Urine Nitrite - Dipstick Negative Negative Urine PH 7.0 6.5-7.5 Urine Protein - Dipstick Negative mg/dL Negative Urine RBC 0-2 rbc/hpf 0-7 Urine Specific Sloan <=1.005 Low 1.010-1.030 Urine Urobilinogen - Dipstick 0.2 E.U./dL 0.2-1.0 Urine WBC 15-20 wbc/hpf High 0-7 Laboratory test 01/20/2011 N2N/CCD Import Culture If Indicated See Note 31 finding Comment Urine Culture See Note 32 Urine Screen See Note 33 1 QUERY: Is the Patient Fasting? N 2 Vitamin D deficiency has been defined by the [place] of [employer] and an Endocrine Society practice guideline as a level of serum 25-OH vitamin D less than 20 ng/mL (1,2). The Endocrine Society went on to further define vitamin D insufficiency as a level between 21 and 29 ng/mL (2). 1. IOM ([place] [employer]). 2010. Dietary reference intakes for calcium and D. [place]: The National Academies Press. 2. Diego MF, Amy NC, Kaley GAMBOA, et al. Evaluation, treatment, and prevention of vitamin D deficiency: an Endocrine Society clinical practice guideline. JCEM. 2010; 96(7):1911-30. Performed at: RN - [facility] [address] [id number] Fsr: Radha Alegre MD, Phone: [phone] 3 URINE SPECIMENS ARE SCREENED AT THE LISTED CUTOFFS DRUG CLASS INITIAL TEST LEVEL Amphetamines 1000 ng/mL Barbiturates 200 ng/mL Benzodiazepines 200 ng/mL Cannabinoids 50 ng/mL Cocaine Metabolite 300 ng/mL Methadone 300 ng/mL Opiates 300 ng/mL Any POSITIVE findings are UNCONFIRMED. Confirmatory testing is suggested if findings are unexpected. Please contact laboratory if confirmatory testing is desired. SPECIMENS ARE HELD FOR 72 HOURS. 4 Note: Persistent reduction for 3 months or more in an eGFR <60 mL/min/1.73 m2 defines CKD. Patients with eGFR values >/=60 mL/min/1.73 m2 may also have CKD if evidence of persistent proteinuria is present. The original MDRD equation for estimated GFR is not valid for patients less than 18 years of age. Additional information may be found at www.kdoqi.org. 5 Values below the stated reference ranges of AST and ALT can be seen in normal populations. Clinical correlation is suggested. 6 FIRST MORNING SPECIMENS GENERALLY CONTAIN THE HIGHEST CONCENTRATION OF HCG AND ARE RECOMMENDED FOR EARLY DETECTION OF . 7 Result confirmed by repeat analysis. 8 Note: Persistent reduction for 3 months or more in an eGFR <60 mL/min/1.73 m2 defines CKD. Patients with eGFR values >/=60 mL/min/1.73 m2 may also have CKD if evidence of persistent proteinuria is present. The original MDRD equation for estimated GFR is not valid for patients less than 18 years of age. Additional information may be found at www.kdoqi.org. 9 Values below the stated reference ranges of AST and ALT can be seen in normal populations. Clinical correlation is suggested. 10 0.0 - 0.045 ng/mL: Normal 0.046 - 0.5 ng/mL: Suggestive 0.6 - 1.5 ng/mL: Consistent 11 Low positive Thyroglobulin antibodies are seen in a portion of the asymptomatic populations. Antithyroglobulin antibodies measured by Josey Hastings Methodology 12 Performed at: RN - [facility] [address] [id number] Fsr: Radha Alegre MD, Phone: [phone] 13 Elevated levels of HbA1c suggest the need for more aggressive treatment of glycemia. The [place] Diabetes Association recommends that a primary goal of therapy should be a HbA1c of <7% and that physicians should re-evaluate the treatment regimen in patients with HbA1c values consistently >8%. 14 Negative <1:80 Borderline 1:80 Positive >1:80 15 HLA-B*27 Negative [facility] [place] ID Number [id number] This test was performed using PCR (Polymerase Chain Reaction)/SSOP (Sequence Specific Oligonucleotide Probes) technique. SBT (Sequence Based Typing) and/or SSP (Sequence Specific Primers) may be used as supplemental methods when necessary. Please contact [facility] Customer Service at if you have any questions. Director of [facility] Dr Demario Veengas, PhD Performed at: [address] [place] [id number] Fsr: Demario Venegas PhD, Phone: [phone] Performed at: [address] [id number] Fsr: Radha Alegre MD, Phone: [phone] 16 Acceptable specimens for this test are male urethral swab, endocervical swab and liquid based pap specimens, vaginal swabs in APTIMA transports and first void urine. See online Directory of Services for test number for rectal and pharyngeal specimens. Performed at: [facility] [id number] Fsr: Radha Alegre MD, Phone: [phone] 17 Note: Persistent reduction for 3 months or more in an eGFR <60 mL/min/1.73 m2 defines CKD. Patients with eGFR values >/=60 mL/min/1.73 m2 may also have CKD if evidence of persistent proteinuria is present. The original MDRD equation for estimated GFR is not valid for patients less than 18 years of age. Additional information may be found at www.kdoqi.org. 18 Values below the stated reference ranges of AST and ALT can be seen in normal populations. Clinical correlation is suggested. 19 0.0 - 0.045 ng/mL: Normal 0.046 - 0.5 ng/mL: Suggestive 0.6 - 1.5 ng/mL: Consistent 20 RUN DATE: 06/15/14 [facility] LAB LIVE PAGE 1 RUN TIME: [address] [place] [address] Specimen Inquiry Name: LILLIE COOPER : [address]: Irais Hubbard MD Acct: [id number] Unit: [id number] AGE: 28 Location: [facility] Re06/12/14 SEX: F Status: DEP ER SPEC: [id number] BRUNILDA: 06/12/[address] [facility] [address]: Irais Hubbard MD REQ: [id number] RECD: 06/13/14 STATUS: HANK RUDD DR: Sania Delgadillo MD _ SOURCE: URINE SPDESC: ORDERED: Urine Culture Procedure Result Verified Site Urine Culture Final 06/15/14- 1018 ML Organism 1 NORMAL AARON [place] Count 25-50,000 (Moderate) CFU/ML * ML - MAIN LAB (PSC1) . END OF REPORT * ML=Testing performed at Main Lab DEPARTMENT OF PATHOLOGY, [address] [place] [address] Yfn Steven M.D. Director [facility] # [id number] 21 NO BETA STREPTOCOCCI ISOLATED 22 Cytology Laboratory [address] [place] [address], [address] [place] [address] CYTOLOGY REPORT Name: Lillie Cooper : 1985 (Age: 27) Sex: F Location: [facility]. Rec. # Date Collected: 04/24/2013 Billing #: [id number] Date Received: 2013 Physician(s): TRISTON LARRY Source of Specimen: ENDOCERVICAL/ECTOCERVICAL THIN PREP Clinical Information: Date of Last Menstrual Period: None Provided Hormonal History: IUD Interpretation: NEGATIVE FOR INTRAEPITHELIAL LESION OR MALIGNANCY. Specimen Adequacy: SATISFACTORY FOR EVALUATION. Additional Findings: ENDOCERVICAL/TRANSFORMATION ZONE PRESENT. dcl Electronic Signature AUDI Boles (ASCP) Reported: 04/27/2013 [facility] Digital Signal Laboratory [facility] ICD-9 Code(s) V72.31 23 Note: Persistent reduction for 3 months or more in an eGFR <60 mL/min/1.73 m2 defines CKD. Patients with eGFR values >/=60 mL/min/1.73 m2 may also have CKD if evidence of persistent proteinuria is present. The original MDRD equation for estimated GFR is not valid for patients less than 18 years of age. Additional information may be found at www.kdoqi.org. 24 Negative <9.0 Equivocal 9.0 - 11.0 Positive >11.0 25 Negative <0.9 Indeterminate 0.9 - 1.0 Positive >1.0 26 Negative <9.0 Equivocal 9.0 - 11.0 Positive >11.0 This test was developed and its performance characteristics determined by [facility]. It has not been cleared or approved by the Food and Drug Administration. Results of this test are for investigational purposes only. The result should not be used as a diagnostic procedure without confirmation of the diagnosis by another medically diagnostic product or procedure. Performed at: - [facility] [id number] Fsr: Radha Alegre MD, Phone: [phone] 27 NEGATIVE FOR CHLAMYDIA TRACHOMATIS BY DNA HYBRIDIZATION ASSAY. THIS TEST IS APPROVED FOR OCULAR AND UROGENITAL SITES ONLY. 28 NEGATIVE FOR NEISSERIA GONORRHOEAE BY DNA HYBRIDIZATION ASSAY. THIS METHOD IS APPROVED FOR UROGENITAL SITES ONLY. 29 Organism 1 ! BETA STREPTOCOCCUS GROUP B QUANTITY ! MODERATE RECOMMENDED THERAPY: ! PENICILLIN OR AMPICILLIN. 30 POSSIBLE UROGENITAL CONTAMINATION. 31 CULTURE TO FOLLOW 32 COLONY COUNT ! 1,000 - 5,000 CFU/ml Organism 1 ! URETHRAL AARON 33 01/20/11 [facility] Deleted by [facility]lex [facility] Procedures Date Code Description Status 03/10/2016 60578 Radiology, L-S Spine Complete Completed 03/10/2016 40382 Radiology, L-S Spine Complete Completed 12/25/2014 68797 Radiology, Hand: Minimum Three Views Completed 12/20/2014 42757 Psychiatric Diag Eval W/Medical Service Completed 07/12/2014 88409 Radiology, L-S Spine 2 Or 3 Views Completed 06/13/2014 56255 Radiology, Hips Min. 2 Views, Including Pelvis Completed 06/13/2014 86353 Radiology, Hip Complete 2 Views Completed 06/13/2014 62214 Radiology, Hip Complete 2 Views Completed 06/13/2014 01192 Radiology, Pelvis 1 Or 2 Views Completed 01/05/2012 92378 Asp./Injection major joint Completed 06/29/2011 86744 Asp./Injection major joint Completed 06/02/2011 92050 Insertion Of Intrauterine Device Completed 04/21/2011 27613 Post- Care Only Completed 03/06/2011 60365 Anesthesia,Neuraxial Labor Completed 03/02/2011 48499 Antepartum 7 Or More Total Office Visit Completed 02/24/2011 62669 Antepartum 7 Or More Total Office Visit Completed 02/18/2011 48426 Antepartum 7 Or More Total Office Visit Completed 02/11/2011 72710 Antepartum 7 Or More Total Office Visit Completed 02/05/2011 02006 Antepartum 7 Or More Total Office Visit Completed 01/26/2011 46094 Antepartum 7 Or More Total Office Visit Completed 01/12/2011 53055 Antepartum 7 Or More Total Office Visit Completed 12/22/2010 68001 Antepartum 7 Or More Total Office Visit Completed 12/08/2010 57606 Antepartum 7 Or More Total Office Visit Completed 11/17/2010 80119 Antepartum 7 Or More Total Office Visit Completed 10/28/2010 07510 Antepartum 7 Or More Total Office Visit Completed 10/15/2010 11854 Antepartum 7 Or More Total Office Visit Completed 2010 42807 Antepartum 7 Or More Total Office Visit Completed 09/02/2010 07385 Exc Benign Lesion Except Skin Tag-Trunk,Arm,Or Legs 1.1 To Completed 2.0CM 08/19/2010 66667 Antepartum 7 Or More Total Office Visit Completed Encounters Type Date Location Provider Dx Diagnosis Office Visit 02/22/2018 Primary [facility] [place], K58.0 Irritable bowel 10:15a Office Carla, [facility] syndrome with diarrhea J20.9 Acute bronchitis, unspecified J45.909 Unspecified asthma, uncomplicated R51 Headache M21.612 Bunion of left foot Office Visit 05/11/2016 2:00p Orthopaedic Office Henry Carpio M54.5 Low back pain M.D. M54.16 Radiculopathy, lumbar region Office Visit 03/10/2016 10:15a Orthopaedic Office Orquidea Ribeiro M54.5 Low back S., RPAC pain M25.551 Pain in right hip Office Visit 12/12/2015 10:00a Orthopaedic Office Henry Carpio M54.5 Low back pain M.D. Office Visit 12/04/2015 10:45a Orthopaedic Office Henry Carpio M54.5 Low back pain M.D. Office Visit 12/25/2014 10:15a Orthopaedic Office Henry Carpio M79.641 Pain in right M.D. hand M25.551 Pain in right hip Office Visit 12/20/2014 4:22p Solo Re[place], F33.9 Major depressive [facility] Loli Morfin disorder, [facility] recurrent, unspecified Office Visit 10/11/2014 10:30a Family Medicine [place], 780.[address] Sarakietrody, Hyperhidrosis MESH MAN Office Visit 10/10/2014 2:15p Family Medicine [place], 300.[address] [place], Generalized MESH MAN 724.2 Lumbago 727.1 Bunion Office Visit 08/20/2014 2:15p Orthopaedic Office Shirin 719.45 Pain Joint Pelvic [facility] Office Visit 08/08/2014 10:45a Orthopaedic Office Shirin 719.45 Pain Joint Pelvic [facility] Office Visit 07/12/2014 10:45a Family Medicine Betzaida, 720.[address] Valelauraearle Elsewhere h, MESH MAN Classified 300.02 Anxiety Disorder Generalized Office Visit 07/12/2014 9:15a Orthopaedic Office Henry Carpio M.D. 724.2 Lumbago 720.2 Sacroiliitis Not Elsewhere Classified Office Visit 06/29/2014 9:30a Orthopaedic Shirin 719.45 Pain Joint Pelvic Office [facility] Office Visit 06/15/2014 9:15a Family Medicine [place], 574.[address] Felecialillianavince Gallbladder & Bile h, MESH MAN Duct Other Cholecystitis W/O Obs 574.70 Calculus Gallbladder & Bile Duct Other Cholecystitis W/O Obs 625.9 Female Genital Organs Unspec Symptoms 625.9 Female Genital Organs Unspec Symptoms Office Visit 06/13/2014 10:15a Orthopaedic Office Henry Carpio, 719.45 Pain Joint M.DElaine Pelvic Region & Thigh 719.45 Pain Joint Pelvic Region & Thigh Office Visit 06/01/2014 10:15a Family Clkarlee, 461.8 Sinusitis Acute Medicine West KENDY [address] Other RD 719.45 Pain Joint Pelvic Region & Thigh 305.1 Tobacco Use Disorder Plan of Treatment 03/25/2018 - Carla Fregoso RPACK58.0 Irritable bowel syndrome with diarrheaComments:Responding to Fibercon one tab [id number] HeadacheComments: Multifactorial Current medication(s): Nortriptyline 10mg qhs, Topiramate 200mg BIDJ45.909 Unspecified asthma, uncomplicatedComments:Did not have the nebulizer filled last month.Printed RXs for DME and handed to kokklbyB51.909 Epilepsy, unspecified, not intractable, without status epileComments:Seeking second opinion.Requesting provider in [place] Current medication(s): Topiramate, [id number] Unspecified mood [affective] disorderComments:Current medication(s) : Lorazepam, MirtazapineFollowing with [facility]
[2018-04-23 11:08] VITALS: BP 118/82
--- NOTE | 2018-04-23 11:25 | UC ---
Ear Complaint HPI - HPI Summary HPI Summary: 32 yo female with left otalgia that started early this AM no f/c decreased hearing and some vertigo - History of Current Complaint Chief Complaint: UCEar Stated Complaint: LEFT EAR PAIN Time Seen by Provider: 04/23/18 11:06 Hx Obtained From: Patient Hx Last Menstrual Period: 04/17/18 Onset/Duration: Gradual Onset, Lasting Hours Severity Initially: Severe Severity Currently: Severe Pain Intensity: 10 Pain Scale Used: 0-10 Numeric Associated Signs/Symptoms: Positive: Hearing Loss, URI Symptoms - chronic sinus issues - Allergies/Home Medications Allergies/Adverse Reactions: Allergies Allergy/AdvReac Type Severity Reaction Status Date / Time NSAIDS (Non-Steroidal AdvReac See Comment Verified 04/23/18 11:06 Anti-Inflamma Home Medications: Home Medications Ondansetron TAB* [Zofran 4 MG Tab*] 4 mg PO Q6H PRN 04/23/18 [History Confirmed 04/23/18] PMH/Surg Hx/FS Hx/Imm Hx Previously Healthy: Yes Respiratory History: Asthma GI/ History: Ulcer Psychological History: Bipolar Disorder - Surgical History Surgical History: Yes Surgery Procedure, Year, and Place: TONSILECTOMY A CHILD,. 2006 ULCER REPAIR WITH CAUTERIZATION, [place], [place]. 2006 RIGHT HIP CYST REMOVAL, [place], [place]. 2013 RIGHT FOOT BUNION REMOVED, [facility] - Family History Known Family History: Positive: Hypertension, Respiratory Disease - asthma, Other - father from lung cancer, Non-Contributory Negative: Seizure Disorder - Social History Alcohol Use: None Substance Use Type: Marijuana Substance Use Comment - Amount & Last Used: daily Smoking Status (MU): Heavy Every Day Tobacco Smoker Type: Cigarettes Amount Used/How Often: 1 PPD Length of Time of Smoking/Using Tobacco: Since Age 19 Have You Smoked in the Last Year: Yes When Did the Patient Quit Smoking/Using Tobacco: requesting nicotine inhaler Household Exposure Type: Cigarettes - Immunization History Most Recent Influenza Vaccination: 2015 Most Recent Pneumonia Vaccination: none Review of Systems All Other Systems Reviewed And Are Negative: Yes Constitutional: Positive: Negative Skin: Positive: Negative Eyes: Positive: Negative ENT: Positive: Ear Ache, Sinus Congestion Respiratory: Positive: Negative Cardiovascular: Positive: Negative Gastrointestinal: Positive: Negative Genitourinary: Positive: Negative Motor: Positive: Negative Neurovascular: Positive: Negative Musculoskeletal: Positive: Negative Neurological: Positive: Negative Psychological: Positive: Negative Physical Exam Triage Information Reviewed: Yes Appearance: Well-Appearing, No Pain Distress, Well-Nourished Vital Signs: Initial Vital Signs Temp 98 F 04/23/18 11:05 Pulse 90 04/23/18 11:05 Resp 17 04/23/18 11:05 BP 118/82 04/23/18 11:05 Pulse Ox 100 04/23/18 11:05 Vital Signs Reviewed: Yes Eyes: Positive: Conjunctiva Clear ENT: Positive: Nasal congestion, TM bulging - L, TM red - L, Uvula midline. Negative: Hearing grossly normal, Nasal drainage, Tonsillar swelling, Tonsillar exudate, Trismus, Muffled voice, Hoarse voice, Sinus tenderness Dental Exam: Other - dentures Neck: Positive: Supple, Nontender, No Lymphadenopathy Respiratory: Positive: Lungs clear, Normal breath sounds, No respiratory distress, No accessory muscle use Cardiovascular: Positive: RRR, No Murmur Musculoskeletal: Positive: ROM Intact, No Edema Neurological: Positive: Alert Psychological Exam: Normal Skin Exam: Normal Ear Complaint Course/Dx - Differential Dx/Diagnosis Provider Diagnosis: Left otitis media Discharge - Sign-Out/Discharge Documenting (check all that apply): Patient Departure All imaging exams completed and their final reports reviewed: No Studies - Discharge Plan Condition: Stable Disposition: HOME Prescriptions: Amoxicillin PO (*) [Amoxicillin 875 MG (*)] 875 mg PO BID #20 tab Patient Education Materials: Ear Infection (ED), Warm Compress or Soak (ED) Referrals: Annemarie Hassan MD [Primary Care Provider] - 3 Days (if not better) Additional Instructions: recheck in 2-3 weeks if hearing not back to normal - Billing Disposition and Condition Condition: STABLE Disposition: Home
== END 2018-04-23 11:29 | disposition home or self-care (01) ==
LOC: UCCORT 10:06
DX: H66.92 Otitis media, unspecified, left ear (principal); F17.210 Nicotine dependence, cigarettes, uncomplicated; Z88.8 Allergy status to other drugs, medicaments and biological substances
CPT/HCPCS: 99212; G0463

== ENCOUNTER 2018-12-31 19:41 | Emergency (ER) | payer OTHER ==
--- NOTE | 2018-12-31 20:06 | UC ---
Hand/Wrist HPI - HPI Summary HPI Summary: 33-year-old woman comes in with a chief complaint of left wrist pain. Been going on on intermittently for months. Movement makes it worse. Last 1 week she's had constant pain. No specific trauma. Is also getting some occasionally numbness in the fingers. She reports that all the fingers get the numbness not just the first 3. - History Of Current Complaint Stated Complaint: LEFT WRIST PAIN Time Seen by Provider: 12/31/18 20:00 Hx Last Menstrual Period: 04/17/18 - Allergies/Home Medications Allergies/Adverse Reactions: Allergies Allergy/AdvReac Type Severity Reaction Status Date / Time NSAIDS (Non-Steroidal AdvReac See Comment Verified 12/31/18 20:01 Anti-Inflamma Home Medications: Home Medications levETIRAcetam [Keppra-] 750 mg PO BID 12/31/18 [History Confirmed 12/31/18] PMH/Surg Hx/FS Hx/Imm Hx Previously Healthy: Yes - Surgical History Surgical History: Yes Surgery Procedure, Year, and Place: TONSILECTOMY A CHILD,. 2006 ULCER REPAIR WITH CAUTERIZATION, [place], [place]. 2006 RIGHT HIP CYST REMOVAL, [place], [place]. 2014 RIGHT FOOT BUNION REMOVED, [facility] - Family History Known Family History: Positive: Hypertension, Respiratory Disease - asthma, Other - father from lung cancer, Non-Contributory Negative: Seizure Disorder - Social History Alcohol Use: None Substance Use Type: Marijuana Substance Use Comment - Amount & Last Used: daily Smoking Status (MU): Heavy Every Day Tobacco Smoker Type: Cigarettes Amount Used/How Often: 1 PPD Length of Time of Smoking/Using Tobacco: Since Age 19 Have You Smoked in the Last Year: Yes When Did the Patient Quit Smoking/Using Tobacco: requesting nicotine inhaler Household Exposure Type: Cigarettes - Immunization History Most Recent Influenza Vaccination: 2015 Most Recent Pneumonia Vaccination: none Review of Systems All Other Systems Reviewed And Are Negative: Yes Constitutional: Positive: Negative Skin: Positive: Negative Eyes: Positive: Negative ENT: Positive: Negative Respiratory: Positive: Negative Cardiovascular: Positive: Negative Gastrointestinal: Positive: Negative Motor: Positive: Other - see hpi Neurovascular: Positive: Negative Musculoskeletal: Positive: Other: - see hpi Neurological: Positive: Negative Psychological: Positive: Negative Is Patient Immunocompromised?: No Physical Exam Triage Information Reviewed: Yes Appearance: Well-Appearing, Well-Nourished, Pain Distress - mild with lt wrist rom and exam Vital Signs Reviewed: Yes Eye Exam: Normal Eyes: Positive: Conjunctiva Clear Neck: Positive: Supple Respiratory: Positive: No respiratory distress Musculoskeletal: Positive: Other: - Left wrist is tender to palpation diffusely but worse on the distal radius lateral aspect and distal on the medial aspect. Normal capillary refill normal sensation. Patient declines movement of the wrist secondary to pain. Tinel's did elicit pain at the site of the finger strike but did not cause radiation of pain into the fingers. Fingers have full range of motion and full strength. Elbow has full range motion full-strength. Normal radial pulse. Neurological: Positive: Alert Psychological: Positive: Age Appropriate Behavior Skin Exam: Normal Hand/Wrist Course/Dx - Course Course Of Treatment: I discussed the x-rays with the patient. I do not see a fracture radiologist reading is pending. Patient was placed in a cock-up splint by nursing patient neurovascular intact after placement of the cock-up splint. Patient was also given Toradol 30 mg IM here in clinic. Patient reports that her reaction NSAIDs is she needs to avoid them because of a gastric ulcer history. Therefore no prescription for nonsteroidal anti-inflammatories. Recommended ice and the splint and follow-up with orthopedics. - Differential Dx/Diagnosis Provider Diagnosis: Left wrist tendonitis Discharge ED - Sign-Out/Discharge Documenting (check all that apply): Patient Departure All imaging exams completed and their final reports reviewed: No - Discharge Plan Condition: Stable Disposition: HOME Patient Education Materials: Tendinitis (ED) Referrals: Annemarie Hassan MD [Primary Care Provider] - Noe Mirza MD [Medical Doctor] - Additional Instructions: FOLLOW UP WITH DR MIRZA, ORTHOPEDICS. GET REEVALUATED SOONER IF NOT IMPROVING OR WORSE OR ANY QUESTIONS OR CONCERNS. - Billing Disposition and Condition Condition: STABLE Disposition: Home
[2018-12-31 20:08] VITALS: BP 93/72
[2018-12-31] MEDS ORDERED: Ketorolac INJ* 30 MG/ML 1 ML VIAL IM ONE (20:27)
--- NOTE | 2019-01-01 08:19 | UC ---
- Progress Note Progress Note: No fracture, plan is to f/u with Ortho. - Results/Orders Results/Orders: Lead Java J2Ee Developer: Darby Bowling S, ([id number]) Ultrasound Applications Specialist: RADHA (RADHA) Report Date: 01/01/2019 08:03:00 Report Status: Final Start of Report Content ===== Patient Name: BRAD COOPER Medical Record#: [id number] Ordering Physician : Kam Contreras MD Acct.#: [id number] : 1985 Age: 33 Sex: F [place] [facility] [place]: 12/31/182000 ADM Status: [facility] ER Order Information: WRIST LEFT 3+ VWS Accession Number: [id number] CPT: 53394 Indication: Left wrist injury 3 views of the wrist demonstrates no fracture. No other bone or joint abnormality is identified. IMPRESSION: NO FRACTURE OF THE WRIST IS NOTED. R0 Preliminary Imaging Read R0 01/01/19758 Dictated By: Darby Bowling MD Dictated Date/Time: 01/01/19754 Transcribed Date/Time: 01/01/19754 Copy to: CC:Annemarie Hassan MD; Kam Contreras MD Imaging - [facility] Imaging - [facility] [address] [place] [address] ph [phone] ph [phone] ph ([phone]) End of Report Content === Course/Dx - Diagnoses Provider Diagnoses: Left wrist tendonitis Discharge ED - Sign-Out/Discharge Documenting (check all that apply): Post-Discharge Follow Up All imaging exams completed and their final reports reviewed: No - Discharge Plan Condition: Stable Disposition: HOME Patient Education Materials: Tendinitis (ED) Referrals: Noe Mirza MD [Medical Doctor] - Annemarie Hassan MD [Primary Care Provider] - Additional Instructions: FOLLOW UP WITH DR MIRZA, ORTHOPEDICS. GET REEVALUATED SOONER IF NOT IMPROVING OR WORSE OR ANY QUESTIONS OR CONCERNS. - Billing Disposition and Condition Condition: STABLE Disposition: Home
--- NOTE | 2019-01-01 08:21 | UC ---
- Progress Note Progress Note: Marked x-ray as reviewed. Course/Dx - Diagnoses Provider Diagnoses: Left wrist tendonitis Discharge ED - Sign-Out/Discharge Documenting (check all that apply): Post-Discharge Follow Up All imaging exams completed and their final reports reviewed: Yes - Discharge Plan Condition: Stable Disposition: HOME Patient Education Materials: Tendinitis (ED) Referrals: Noe Mirza MD [Medical Doctor] - Annemarie Hassan MD [Primary Care Provider] - Additional Instructions: FOLLOW UP WITH DR MIRZA, ORTHOPEDICS. GET REEVALUATED SOONER IF NOT IMPROVING OR WORSE OR ANY QUESTIONS OR CONCERNS. - Billing Disposition and Condition Condition: STABLE Disposition: Home
== END 2018-12-31 20:52 | disposition home or self-care (01) ==
LOC: UCCORT 19:41
DX: M77.9 Enthesopathy, unspecified (principal); F17.210 Nicotine dependence, cigarettes, uncomplicated; Z88.6 Allergy status to analgesic agent
CPT/HCPCS: 96372; 99212; G0463; J1885

== ENCOUNTER 2019-01-10 12:48 | Emergency (ER) | payer OTHER ==
[2019-01-10 13:18] VITALS: BP 102/73
--- NOTE | 2019-01-10 13:30 | UC ---
Throat Pain/Nasal Raj HPI - HPI Summary HPI Summary: nasal congestion x 5 days pnd, sinus pain / pressure, sore throat, bilateral ear pain cough , no fever, + chills, fatigue - History of Current Complaint Chief Complaint: UCRespiratory Stated Complaint: ST/CHEAT RAJ/L EAR PAIN Time Seen by Provider: 01/10/19 13:12 Hx Obtained From: Patient Hx Last Menstrual Period: 12/26/18 ?: No Onset/Duration: Gradual Onset, Lasting Days - 5, Still Present Severity: Moderate Pain Intensity: 8 Cough: Nonproductive Associated Signs & Symptoms: Positive: Sinus Discomfort, Nasal Discharge. Negative: Wheezing, Hoarseness, Fever, Vomiting, Rash - Allergies/Home Medications Allergies/Adverse Reactions: Allergies Allergy/AdvReac Type Severity Reaction Status Date / Time NSAIDS (Non-Steroidal AdvReac See Comment Verified 01/10/19 13:18 Anti-Inflamma Home Medications: Home Medications Ibuprofen TAB* [Motrin TAB* 600 MG] 1,200 mg PO Q6H PRN 01/10/19 [History Confirmed 01/10/19] guaiFENesin [Mucinex] 600 mg PO DAILY 01/10/19 [History Confirmed 01/10/19] PMH/Surg Hx/FS Hx/Imm Hx Respiratory History: Asthma GI/ History: Ulcer Psychological History: Anxiety, Schizophrenia - Surgical History Surgical History: Yes Surgery Procedure, Year, and Place: TONSILECTOMY A CHILD,. 2006 ULCER REPAIR WITH CAUTERIZATION, [place], [place]. 2006 RIGHT HIP CYST REMOVAL, [place], [place]. 2013 RIGHT FOOT BUNION REMOVED, [facility] - Family History Known Family History: Positive: Hypertension, Respiratory Disease - asthma, Other - father from lung cancer, Non-Contributory Negative: Seizure Disorder - Social History Alcohol Use: None Substance Use Type: Marijuana Substance Use Comment - Amount & Last Used: daily Smoking Status (MU): Heavy Every Day Tobacco Smoker Type: Cigarettes Amount Used/How Often: 1 PPD Length of Time of Smoking/Using Tobacco: Since Age 19 Have You Smoked in the Last Year: Yes When Did the Patient Quit Smoking/Using Tobacco: requesting nicotine inhaler Household Exposure Type: Cigarettes - Immunization History Most Recent Influenza Vaccination: 2014 Most Recent Pneumonia Vaccination: none Review of Systems All Other Systems Reviewed And Are Negative: Yes Constitutional: Positive: Chills, Fatigue. Negative: Fever Skin: Positive: Negative Eyes: Positive: Negative ENT: Positive: Sore Throat, Ear Ache, Nasal Discharge, Sinus Congestion, Sinus Pain/Tenderness Respiratory: Positive: Cough Cardiovascular: Positive: Negative Is Patient Immunocompromised?: No Physical Exam Triage Information Reviewed: Yes Appearance: Well-Appearing, No Pain Distress, Well-Nourished Vital Signs: Initial Vital Signs Temp 98.9 F 01/10/19 13:15 Pulse 77 01/10/19 13:15 Resp 18 01/10/19 13:15 BP 102/73 01/10/19 13:15 Pulse Ox 100 01/10/19 13:15 Vital Signs Reviewed: Yes Eye Exam: Normal Eyes: Positive: Conjunctiva Clear ENT: Positive: Normal ENT inspection, Hearing grossly normal, Pharynx normal, Nasal congestion, Nasal drainage, TMs normal. Negative: TM bulging, TM dull, TM red, Tonsillar swelling, Tonsillar exudate Neck exam: Normal Neck: Positive: Supple, Nontender, No Lymphadenopathy Respiratory: Positive: Chest non-tender, Lungs clear, Normal breath sounds Cardiovascular: Positive: RRR, No Murmur, Pulses Normal Skin Exam: Normal Throat Pain/Nasal Course/Dx - Differential Dx/Diagnosis Provider Diagnosis: URI (upper respiratory infection) Discharge ED - Sign-Out/Discharge Documenting (check all that apply): Patient Departure All imaging exams completed and their final reports reviewed: No Studies - Discharge Plan Condition: Stable Disposition: HOME Patient Education Materials: Upper Respiratory Infection (ED) Referrals: Annemarie Hassan MD [Primary Care Provider] - If Needed Additional Instructions: viral illness, no need for antibiotics cont. with rest, increase fluid, Mucinex , Flonase follow up as needed - Billing Disposition and Condition Condition: STABLE Disposition: Home
== END 2019-01-10 13:34 | disposition home or self-care (01) ==
LOC: UCCORT 12:48
DX: J06.9 Acute upper respiratory infection, unspecified (principal); R53.83 Other fatigue; F20.9 Schizophrenia, unspecified; J45.909 Unspecified asthma, uncomplicated; H92.03 Otalgia, bilateral; F17.210 Nicotine dependence, cigarettes, uncomplicated; Z88.6 Allergy status to analgesic agent
CPT/HCPCS: 99211; G0463

== ENCOUNTER 2019-03-16 09:51 | Emergency (ER) | payer OTHER ==
--- OUTSIDE RECORDS SUMMARY | 2019-03-16 10:18 | XMS REPORT | Continuity of Care Document ---
:1985 Author Organization [address] [place] [address] [place] [address] Phone Care Team Providers Name Role Phone [employer] [facility], UNKNOWN Unavailable Unavailable Allergies, Adverse Reactions, Alerts Substance Reaction Status Substance Type Unknown Medications Medication Instructions Dosage Effective Dates (start - stop) Status Comments Drug Treatment Unknown Problems Condition Effective Dates (start - stop) Clinical Status Unknown Procedures Procedure Date Procedure Unknown Results Test Name Date and Time Measure Units Reference Range Abnormal Flag Status Comments Unknown Encounters Encounter Practice Location Reason(s) Diagnoses Date Provider Providers Description For Visit Copied on Encounter [address] [place] [address] Emergency [facility], [address] [place] [address] - [facility] [address] [place] [address], [place]. [place], [address], tel:[phone] Family History Family Member Diagnosis Age At Onset Unknown Immunizations Vaccine Date Status Comments Immunization Unknown Payers Payer name Insurance type Covered republican ID Authorization(s) [place] [id number] Social History Type Description Quantity Date Captured Comments Unknown Vital Signs Date / Height Weight BMI Pulse Blood Temperature Respiratory Body Head BMI Time: Rate Pressure Rate Surface Circumference percentile Area Unknown Chief Complaint And Reason For Visit No information Reason For Referral Reason For Referral Unknown Plan Of Care Date Type Action Status Unknown Date Type Problem Goal Intervention Status Start Date Unknown History Of Present Illness Encounter Date Complaint History Of Present Illness No information Functional Status Encounter Date Functional Assessment Cognitive Assessment Unknown Medications Administered Medication Instructions Dosage Effective Dates (start - stop) Status Comments Drug Treatment Unknown Instructions Date Instruction Additional Information Unknown
--- OUTSIDE RECORDS SUMMARY | 2019-03-16 10:18 | XMS REPORT | Continuity of Care Document ---
:1985 External Reference #:[id number] Author Name Noe Mirza MD (transmitted by agent of provider Ramesh Johnson) Address [address] [place] [id number] Care Team Providers Name Role Phone Denver Chowdhury MD - Internal Medicine Care Team Information Veneer Stapler [phone] [facility] Care Team Information Veneer Stapler [phone] Problems Active Problems Provider Date Localization-related epilepsy Kirill Peguero M.D. Onset: 08/01/2014 Irritable bowel syndrome Onset: 01/15/2015 Gastroesophageal reflux disease Onset: 01/15/2015 Chronic gastric ulcer Onset: 01/15/2015 Social History Type Date Description Comments Sex Unknown Tobacco Use Start: Unknown Heavy tobacco smoker (more than 10 cigarettes/day) ETOH Use Negative For Occasionally consumes alcohol ETOH Use Denies alcohol use Tobacco Use Start: Unknown Patient is a current smoker, smokes every day Recreational Drug Use Regularly uses Marijuana Tobacco Use Start: Unknown Heavy tobacco smoker (more than 10 cigarettes/day) Smoking Status Reviewed: 06/01/18 Heavy tobacco smoker (more than 10 cigarettes/day) Exercise Type/Frequency Does not exercise Allergies, Adverse Reactions, Alerts Active Allergies Reaction Severity Comments Date Ibuprofen / Lidocaine 11/05/2016 Inactive Allergies NKDA 09/13/2013 Medications Active Medications SIG Qnty Indications Ordering Date Provider Topiramate 2 by mouth twice 120tabs Kirill Alvarenga 04/02/2014 100mg Tablets a day Loli Peguero Proair HFA 2 puffs by mouth 1units Unknown 108(90Base) every 4 hours as mcg/Act Aerosol needed Tylenol Extra Strength 2 by mouth as 100tabs Unknown needed 500mg Tablets Calcium 600+D 2 by mouth Unknown everyday [id number]-Hteq Tablets Mirtazapine 1 tab by mouth Unknown 15mg Tablets every day at bedtime Lorazepam TK 1 T PO Twice Unknown 1mg Tablets D. MDD 2 MG. MDD 2 Hydroxyzine HCL TK 1 T PO bid as Unknown 25mg Needed. MDD 50 Tablets MG. MDD 2 Fluticasone Propionate as directed Mi Yates, N.P. 50mcg/Act Suspension Nortriptyline HCL 1 cap by mouth Unknown 50mg at bedtime Capsules Levetiracetam TK 1 T PO bid Unknown 750mg Tablets Pantoprazole Sodium TK 1 T PO D Unknown 40mg Tablets DR Omeprazole 1 by mouth every Unknown 20mg Capsules day DR Immunizations CPT Code Status Date Vaccine Lot # [id number] Given 06/16/2013 Tdap - Tetanus/Diptheria/Acellular Pertussis 38847 Given 04/17/2013 Pneumococcal Conjugate Vaccine 13 Valent For Intramuscular Use Vital Signs Date Vital Result Comment 02/03/2019 1:15pm Height 62 inches 5'2" Weight 130.25 lb Heart Rate 116 /min BP Systolic Sitting 110 mmHg BP Diastolic Sitting 60 mmHg Body Temperature 98.3 F Pain Level 10 O2 % BldC Oximetry 96 % BMI (Body Mass Index) 23.8 kg/m2 06/01/2018 10:13am Height 62 inches 5'2" Weight 149.38 lb Heart Rate 87 /min BP Systolic Sitting 110 mmHg BP Diastolic Sitting 76 mmHg Pain Level 4 O2 % BldC Oximetry 98 % BMI (Body Mass Index) 27.3 kg/m2 Results Description No Information Available Procedures Date Code Description Status 02/03/2019 57475 Short Arm Cast Application Completed Medical Devices Description No Information Available Encounters Description No Information Available Assessments Date Code Description Provider 02/03/2019 S60.221A Contusion of right hand, initial encounter Noe Mirza MD Plan of Treatment Future Appointment(s):02/17/2019 11:00 am - Noe Mirza MD at [facility]02/03/2019 - Noe Mirza, MDS60.221A Contusion of right hand, initial encounterFollow up:Follow up: 2 weeks Functional Status Description No Information Available Mental Status Description No Information Available Referrals Description No Information Available
--- OUTSIDE RECORDS SUMMARY | 2019-03-16 10:18 | XMS REPORT | Continuity of Care Document ---
:1985 Author Organization [address] [facility] Address [address], [place] [address] Phone Care Team Providers Name Role Phone SHERIDAN VILLALOBOS MD Unavailable Unavailable Allergies, Adverse Reactions, Alerts Substance [...] Providers Description For Visit Copied on Encounter 0001 - [facility] - [facility], [address] [facility]. [address], [place] , [place], [address], . [address], tel:[phone] tel:[phone] Family History Family Member Diagnosis Age At Onset Unknown Immunizations Vaccine Date Status Comments Immunization Unknown Payers Payer name Insurance type Covered libertarian ID Authorization(s) [place] [id number] Social History Type Description Quantity Date Captured [...]
--- OUTSIDE RECORDS SUMMARY | 2019-03-16 10:18 | XMS REPORT | Continuity of Care Document ---
:1985 Author Organization [address] [place] [address] [place] [address] Phone Care Team Providers Name Role Phone JENNIFER ZARAGOZA Unavailable Unavailable Allergies, Adverse Reactions, Alerts Substance Reaction Status Substance Type Unknown Medications Medication Instructions Dosage Effective Dates (start - stop) Status Comments Drug Treatment Unknown Problems Condition Effective Dates (start - stop) Clinical Status Unknown Procedures Procedure Date Procedure Unknown Results Test Name Date and Time Measure Units Reference Range Abnormal Flag Status Comments Unknown NOTE: This patient has pending results not included in this document. Encounters Encounter Practice Location Reason(s) Diagnoses Date Provider Providers Description For Visit Copied on Encounter [address] [place] [address] [facility], [address], Emergency [address], Department, tel:[phone] [phone] [place] [address], [address]. tel:[phone] Family History Family Member Diagnosis Age At Onset Unknown Immunizations Vaccine Date Status Comments Immunization Unknown Payers Payer name Insurance type Covered democrat ID Authorization(s) [place] [id number] Social History Type Description Quantity Date Captured [...]
--- OUTSIDE RECORDS SUMMARY | 2019-03-16 10:18 | XMS REPORT | Continuity of Care Document ---
:1985 Author Organization [address] [place] [address] [place] [address] Phone Care Team Providers Name Role Phone Provider, Default Unavailable Unavailable Allergies, Adverse Reactions, Alerts Substance [...] Providers Description For Visit Copied on Encounter [address] [place] [address] - Provider [facility], 2018 Default. [place], [address], tel:[phone] Family History Family Member Diagnosis Age At Onset Unknown Immunizations Vaccine Date Status Comments Immunization Unknown Payers Payer name Insurance type Covered alliance party ID Authorization(s) [place] [id number] Social History Type Description Quantity Date Captured [...]
[2019-03-16 10:45] VITALS: BP 110/71
[2019-03-16 11:17] LABS: Influenza A Molecular Negative (Negative); Influenza B Molecular Negative (Negative)
--- NOTE | 2019-03-16 11:24 | UC ---
Throat Pain/Nasal Raj HPI - HPI Summary HPI Summary: 33 y/o female presents to the urgent care c/o subjective Fever, sinus pain w/ pressure and congestion, nonproductive cough, chest discomfort, nausea without vomiting, myalgias, chills, sweats, and difficulty sleeping for the past two weeks. Constant sore throat for at least two days. Her daughter was diagnosed with strep four or five days ago. She ahs been taking Mucinex PO and Ibuprofen PO to alleviate symptoms. She feels her Yellowish PND is triggering her cough when she lays down. Sinus pain w/ B/L ear pressure is 6/10 at times. Pt denies dizziness, SOB, chest pain,abdominal pain, N/V/D. - History of Current Complaint Chief Complaint: UCRespiratory Stated Complaint: ST,GAMBOA,FEVER,BODY ACHES Time Seen by Provider: 03/16/19 11:21 Hx Obtained From: Patient Hx Last Menstrual Period: ~03/11/2019 ?: No Onset/Duration: Gradual Onset, Lasting Weeks - 2 weeks, Still Present, Worse Since - 2 days ago Severity: Moderate Pain Intensity: 6 - sinus pain Pain Scale Used: 0-10 Numeric Cough: Nonproductive Associated Signs & Symptoms: Positive: Sinus Discomfort, Nasal Discharge - yellowish, Fever, Other - cough and moderate PND. Negative: Dysphagia, Wheezing , Hoarseness, Vomiting, Rash - Epiglottits Risk Factors Epiglottis Risk Factors: Negative - Allergies/Home Medications Allergies/Adverse Reactions: Allergies Allergy/AdvReac Type Severity Reaction Status Date / Time NSAIDS (Non-Steroidal AdvReac See Comment Verified 03/16/19 10:40 Anti-Inflamma Home Medications: Home Medications Ibuprofen TAB* [Motrin TAB* 600 MG] 600 mg PO Q6H PRN 03/16/19 [History Confirmed 03/16/19] Topiramate [Topiramate ER 200 mg cap] 200 mg PO DAILY 03/16/19 [History Confirmed 03/16/19] PMH/Surg Hx/FS Hx/Imm Hx Previously Healthy: Yes Other Respiratory History: recurrent sinusitis - Surgical History Surgical History: Yes Surgery Procedure, Year, and Place: TONSILECTOMY A CHILD,. 2006 ULCER REPAIR WITH CAUTERIZATION, [place], [place]. 2007 RIGHT HIP CYST REMOVAL, [place], [place]. 2014 RIGHT FOOT BUNION REMOVED, [facility] - Family History Known Family History: Positive: Hypertension, Respiratory Disease - asthma, Other - father from lung cancer Negative: Seizure Disorder - Social History Occupation: Employed Full-time Lives: With Family Alcohol Use: None Substance Use Type: Marijuana Substance Use Comment - Amount & Last Used: Daily Smoking Status (MU): Heavy Every Day Tobacco Smoker Type: Cigarettes Amount Used/How Often: 1 1/2 PPD Length of Time of Smoking/Using Tobacco: Since Age 19 Have You Smoked in the Last Year: Yes When Did the Patient Quit Smoking/Using Tobacco: requesting nicotine inhaler Household Exposure Type: Cigarettes - Immunization History Most Recent Influenza Vaccination: 2014 Most Recent Pneumonia Vaccination: none Review of Systems All Other Systems Reviewed And Are Negative: Yes Constitutional: Positive: Fever, Chills Skin: Positive: Negative Eyes: Positive: Negative ENT: Positive: Sore Throat, Ear Ache - B/l ear pressure, Nasal Discharge - yellowish, Sinus Congestion, Sinus Pain/Tenderness, Other - moderate PND Respiratory: Positive: Cough - dry Cardiovascular: Positive: Negative Gastrointestinal: Positive: Negative Genitourinary: Positive: Negative Motor: Positive: Negative Neurovascular: Positive: Negative Musculoskeletal: Positive: Myalgia Neurological: Positive: Headache Psychological: Positive: Negative Is Patient Immunocompromised?: No Physical Exam - Summary Physical Exam Summary: Vitals: reviewed General: Well developed, well-nourished male patient with NAD. Head and face: Normocephalic and atraumatic, Positive tenderness over the frontal and maxillary sinuses.. Eyes: PERRLA, EOMI x 2. Normal conjunctiva. No eye discharge. ENT: Ears and TM with normal limits. Nose: edematous and erythematous nasal mucosa with yellowish discharge and erythematous mucosa. Pharynx with erythema, no exudate. yellowish PND Neck: Supple, no JVD, no carotid bruits and no lymphadenopathy. Lungs: clear, no rales, no rhonchi, no wheezes. CVS: RRR, S1 and S2 present no murmurs or gallops appreciated. Abdomen: soft nontender with positive bowel sounds. Extremities: no edema noted. Neuro: WNL. Skin: warm and dry Triage Information Reviewed: Yes Vital Signs: Initial Vital Signs Temp 99 F 03/16/19 10:37 Pulse 96 03/16/19 10:37 Resp 18 03/16/19 10:37 BP 110/71 03/16/19 10:37 Pulse Ox 99 03/16/19 10:37 Throat Pain/Nasal Course/Dx - Course Course Of Treatment: 33 y/o female presents to the urgent care c/o subjective Fever, sinus pain w/ pressure and congestion, nonproductive cough, chest discomfort, nausea without vomiting, myalgias, chills, sweats, and difficulty sleeping for the past two weeks. Constant sore throat for at least two days. Her daughter was diagnosed with strep four or five days ago. She ahs been taking Mucinex PO and Ibuprofen PO to alleviate symptoms. She feels her Yellowish PND is triggering her cough when she lays down. Sinus pain w/ B/L ear pressure is 6/10 at times. Pt denies dizziness, SOB, chest pain,abdominal pain, N/V/D. Hx obtained. Pt w/ bacterial sinusitis on examination. Pt with 2 weeks of symptoms getting worse. Also Hx of sinusitis which has been managed at times by Dr Varela. Rapid strep: negative, Rapid Influenza A&B: negative. Pt Rx Augmentin PO and advised to use the flonase nasal spray she as at home. Discharge instructions explained to Pt. Advised to Return to the clinic or PCP if symptoms do not improve.Pt understood and agreed with plan of care. - Differential Dx/Diagnosis Differential Diagnosis/HQI/PQRI: Influenza, Laryngitis, Otitis Media, Pharyngitis, Sinusitis, URI Provider Diagnosis: Acute bacterial sinusitis Discharge ED - Sign-Out/Discharge Documenting (check all that apply): Patient Departure - d/c home All imaging exams completed and their final reports reviewed: No Studies - Discharge Plan Condition: Stable Disposition: HOME Prescriptions: Amoxicillin/Clavulanate TAB* [Augmentin TAB 875*] 875 mg PO BID #20 tab Patient Education Materials: Sinusitis (ED) Referrals: [facility] [place] [facility] [Outside] - 3 Days Mike Varela MD [Medical Doctor] - If Needed Additional Instructions: 1- Please increase fluid intake and rest. take full course of antibiotics to avoid resistance. Take yogurts w/ probiotics or Culturelle to protect your GI system 2-Use Flonase as directed to help drain fluid. Also buy saline drops to clear sinuses 3-Please f/u w/ your PCP or your ENT Dr Varela in 3 days if symptoms do not improve for further management and treatment - Billing Disposition and Condition Condition: STABLE Disposition: Home - Attestation Statements Provider Attestation: I was available for consult. This patient was seen by the [facility]. The patient was not presented to, seen by, or examined by me. -Shahnaz
== END 2019-03-16 11:53 | disposition home or self-care (01) ==
LOC: UCCORT 09:51
DX: J01.90 Acute sinusitis, unspecified (principal); B96.89 Other specified bacterial agents as the cause of diseases classified elsewhere; J02.9 Acute pharyngitis, unspecified; F17.210 Nicotine dependence, cigarettes, uncomplicated; Z88.8 Allergy status to other drugs, medicaments and biological substances
CPT/HCPCS: 87651; 99212; G0463